=== PATIENT | male | born 1950 | race Caucasian/White ===

== ENCOUNTER 2024-01-06 06:22 | Day surgery (SDC) | payer MEDICARE, SELFPAY ==
[2023-12-31 10:12] VITALS: BMI 26.9
[2024-01-06 06:43] VITALS: BP 109/53; PULSE 63; RESP 16; TEMP 36.2; O2SAT 95
[2024-01-06] MEDS: Tetracaine HCl/PF 0.5% Oph Sol 4 ML DROPS 1 DROP EYE-RIGHT (06:47)
[2024-01-06] MEDS: Cyclopentolate 1 % Ophth Sol 2 ML DRPBTL 1 DROP EYE-RIGHT ×3 (06:48→07:04)
[2024-01-06] MEDS: Tropicamide 1 % Ophth Sol 3 ML BTL 1 DROP EYE-RIGHT ×3 (06:50→07:06)
[2024-01-06] MEDS: Ketorolac Tromethamine 0.5% Op 10 ML DROPS 1 DROP EYE-RIGHT ×3 (06:52→07:08)
[2024-01-06] MEDS: Phenylephrine HCL 2.5% Oph SoL 2 ML BOTTLE 1 DROP EYE-RIGHT ×3 (06:54→07:10)
[2024-01-06 07:04] LABS: Glucose, Whole Blood 138 mg/dL (60-115)
--- NOTE | 2024-01-06 07:04 | HO.ANESPROP2 ---
HPI - Anesthesia Eval Consult details Narrative: 73 yo male patient for Right cataract extraction, IOL insertion PMFSH Active Problems Active Problems: Intermittent cough. No other symptoms. Past Medical History Medical History Hard of hearing Chronic pain Peripheral neuropathy Mixed hyperlipidemia PVCs (premature ventricular contractions) Heartburn AAA (abdominal aortic aneurysm) Type 2 diabetes mellitus Family History Family history of problems with anesthesia: No Surgical History Surgical History Hx of foot surgery History of total replacement of both shoulder joints Hx of colonoscopy Hx of tonsillectomy History of total left knee replacement History of back surgery History of Problems with Anesthesia: No Social History Social History Patient Tobacco Use Status: Former Tobacco user Tobacco use type: Cigarette Use of substances other than those prescribed or required for medical reasons: No Advance Directives on File: No Nutrition Risks: Surgical patient >75years Meds Allergies Allergy/AdvReac Type Severity Reaction Status Date / Time oxycodone [From OxyContin] Allergy Severe gastrointestinal Verified 12/31/23 09:58 blockage Active Medications: Current Medications Povidone Iodine (Povidone Iodine 5 % Ophth Soln 30 Ml Bottle) 1 appl EYE-RIGHT PREOP PRN PRN Reason: Pre-Op Surgical Implant Prophy Home Medications ?Medication ?Instructions ?Recorded ?Confirmed ?Last Taken ?Type acetaminophen 500 mg tablet 500 mg PO Q6H PRN Pain 12/31/23 12/31/23 Unknown History aspirin 81 mg tablet,delayed 81 mg PO DAILY 12/31/23 12/31/23 Unknown History release atorvastatin 40 mg tablet 40 mg PO DAILY 12/31/23 12/31/23 Unknown History cholecalciferol (vitamin D3) 25 25 mcg PO DAILY 12/31/23 12/31/23 Unknown History mcg (1,000 unit) capsule (Vitamin D3) cyanocobalamin (vitamin B-12) 50 50 mcg PO DAILY 12/31/23 12/31/23 Unknown History mcg tablet (Vitamin B-12) empagliflozin 10 mg tablet 10 mg PO DAILY 12/31/23 12/31/23 Unknown History (Jardiance) flecainide 50 mg tablet 50 mg PO BID 12/31/23 12/31/23 Unknown History gabapentin 300 mg capsule 300 mg PO BID 12/31/23 12/31/23 Unknown History metformin 1,000 mg tablet 1,000 mg PO BID 12/31/23 12/31/23 Unknown History metoprolol succinate 25 mg 25 mg PO DAILY 12/31/23 12/31/23 Unknown History tablet,extended release 24 hr multivitamin 1 tab PO QAM 12/31/23 12/31/23 Unknown History oxybutynin chloride 15 mg 15 mg PO DAILY 12/31/23 12/31/23 Unknown History tablet,extended release 24 hr Exam Height,Weight and Vital Signs: Height 5 ft 6.5 in Weight 76.657 kg Last Vital Signs Temp 97.1 F 01/06/24 06:43 Pulse 63 01/06/24 06:43 Resp 16 01/06/24 06:43 BP 109/53 L 01/06/24 06:43 Pulse Ox 95 01/06/24 06:43 O2 Del Method Room Air 01/06/24 06:43 Airway Mallampati Class: II TM Dist: >3cm Neck ROM: Full Loose/Missing/Broken Teeth: Yes (Some extractions. Denies broken or loose teeth) Heart: RRR Lungs: CTAB Assessment and Plan Assessment Anesthesia Assessment: Anesthesia Plan Discussed and Chart Reviewed Final Anesthetic Review Family History of Problems with Anesthesia: No History of Problems with Anesthesia: No NPO: Yes ASA Class: III Final Preanesthetic Review: No Changes in Pt Med Stat, Meds/Allgs Chart Reviewed, Consent Obtained/Reviewed and Anes Risks/Benef Reviewed Patient Risk: Intermediate Procedure Risk: Low Assessment/Block/Sedation in SS: Assess/Block/Sedation-SS Anesthetic Plan Anesthetic Plan: MAC: (Aware to make surgeon aware if need to cough) Disposition: Standard PACU
[2024-01-06] MEDS: Lactated Ringers 1,000 ML 50 ML IVCONT (07:11)
--- NOTE | 2024-01-06 07:57 | MHC.SHP ---
Pre-Procedural Eval Section A - 24 Hr Update-Section A only Date of Service: 01/06/24 The patient is an INPATIENT: No Changes since office visit: No Cold of Flu in the past 2 weeks, No New Medical Problems, No Changes in Medication and No Patient answered all questions The patient has been examined within 24 hours of the surgical procedure. The History & Physical has been completed within 30 days and I have reviewed it.: Yes Section B - Complete if H&P > 30 days Chief Complaint: Age-related nuclear cataract, right eye Allergies: Allergies Allergy/AdvReac Type Severity Reaction Status Date / Time oxycodone [From OxyContin] Allergy Severe gastrointestinal Verified 01/06/24 07:29 blockage Plan Diagnosis/Plan: Unchanged I have reviewed the history and physical and performed a pertinent physical examination on my patient. No changes have occurred unless specified. Time Spent With Patient Time: Total time managing care of this patient today ____ minutes.
--- NOTE | 2024-01-06 07:58 | P.PCNO_ITS ---
Ophthalmology Procedure Procedure Date of Service: 01/06/24 Ophthalmology Viscoelastic: Healon Duet Dual Pack Pro Ophthalmology Lenses: IOL Acrysof MP - MA60AC (17.5) Procedure Notes: PREOPERATIVE DIAGNOSIS: Decreased visual acuity right eye secondary to cataract POSTOPERATIVE DIAGNOSIS: Same PROCEDURE: Right cataract extraction with intraocular lens insertion SURGEON: Andres Zapata M.D. ANESTHESIA: Topical/MAC ESTIMATED BLOOD LOSS: None COMPLICATIONS: None After obtaining informed consent, the patient was brought to the operating room suite and placed in the supine position. After adequate sedation per anesthesia, topical drops of Tetracaine were given to the right eye. The eye was then prepped and draped in the usual sterile fashion. The operating room microscope was then positioned over the operative eye and a lid speculum placed. A paracentesis was created. Viscoelastic was then instilled into the anterior chamber. A three plane incision was then created temporally, utilizing a 2.85 mm keratome. Capsulotomy forceps were then utilized to create a circular tear capsulotomy. Hydrodissection and hydrodelineation were carried out until adequate mobilization of the nucleus occurred. Phacoemulsification was then utilized to remove the dense central nu cleus followed by removal of the cortical material utilizing the automated aspiration irrigation unit. Viscoelastic was instilled into the posterior capsular bag followed by placement of a posterior chamber intraocular lens without difficulty. The residual Viscoelastic was then removed utilizing the automated IA machine. The wound was checked and found to be watertight. The patient tolerated the procedure well and the lid speculum was removed. Intracameral injection of Vigamox 0.1 mL followed by a subtenon injection of Kenalog-40 0.2 mL were administered. The patient will be seen in the a.m.
[2024-01-06 08:25] VITALS: BP 101/51; PULSE 58; RESP 16; TEMP 36.6; O2SAT 96
== END 2024-01-06 08:36 | disposition home or self-care (01) ==
PROVIDERS: PCP Family Medicine; Visit Provider Ophthalmology
PROC: (CPT 66985; principal; 2024-01-06 08:00)
DX: H25.11 Age-related nuclear cataract, right eye (principal); H54.7 Unspecified visual loss; H52.13 Myopia, bilateral; H02.102 Unspecified ectropion of right lower eyelid; H02.105 Unspecified ectropion of left lower eyelid; H02.403 Unspecified ptosis of bilateral eyelids; H35.09 Other intraretinal microvascular abnormalities; E11.9 Type 2 diabetes mellitus without complications; E78.00 Pure hypercholesterolemia, unspecified; I71.40 Abdominal aortic aneurysm, without rupture, unspecified; Z79.899 Other long term (current) drug therapy; Z79.84 Long term (current) use of oral hypoglycemic drugs; Z79.82 Long term (current) use of aspirin; Z87.891 Personal history of nicotine dependence
CPT/HCPCS: 66984; 82947; J2250; J3010; J3301; V2630

== ENCOUNTER 2024-01-20 06:39 | Day surgery (SDC) | payer MEDICARE, SELFPAY ==
[2023-12-31 10:19] VITALS: BMI 26.9
[2024-01-20 06:41] VITALS: BP 123/57; PULSE 47; RESP 18; TEMP 36.3; O2SAT 98
[2024-01-20] MEDS: Tetracaine HCl/PF 0.5% Oph Sol 4 ML DROPS 1 DROP EYE-LEFT (06:59)
[2024-01-20 07:00] LABS: Glucose, Whole Blood 136 mg/dL (60-115)
[2024-01-20] MEDS: Cyclopentolate 1 % Ophth Sol 2 ML DRPBTL 1 DROP EYE-LEFT ×3 (07:00→07:01)
[2024-01-20] MEDS: Ketorolac Tromethamine 0.5% Op 10 ML DROPS 1 DROP EYE-LEFT ×3 (07:00→07:01)
[2024-01-20] MEDS: Phenylephrine HCL 2.5% Oph SoL 2 ML BOTTLE 1 DROP EYE-LEFT ×3 (07:00→07:02)
[2024-01-20] MEDS: Tropicamide 1 % Ophth Sol 3 ML BTL 1 DROP EYE-LEFT ×3 (07:00→07:02)
[2024-01-20] MEDS: Lactated Ringers 500 ML 20 ML IVCONT (07:09)
--- NOTE | 2024-01-20 07:29 | MHC.SHP ---
Pre-Procedural Eval Section A - 24 Hr Update-Section A only Date of Service: 01/20/24 The patient is an INPATIENT: No Changes since office visit: No Cold of Flu in the past 2 weeks, No New Medical Problems, No Changes in Medication and No Patient answered all questions The patient has been examined within 24 hours of the surgical procedure. The History & Physical has been completed within 30 days and I have reviewed it.: Yes Section B - Complete if H&P > 30 days Chief Complaint: Age-related nuclear cataract, left eye Allergies: Allergies Allergy/AdvReac Type Severity Reaction Status Date / Time oxycodone [From OxyContin] Allergy Severe gastrointestinal Verified 01/06/24 07:29 blockage Plan Diagnosis/Plan: Unchanged I have reviewed the history and physical and performed a pertinent physical examination on my patient. No changes have occurred unless specified. Time Spent With Patient Time: Total time managing care of this patient today ____ minutes.
--- NOTE | 2024-01-20 07:35 | P.CONAN_ITS ---
HPI - Anesthesia Eval Consult details Narrative: 73 yo M presenting for cataract extraction IOL insertion - left eye. Had right eye done previously. [facility] Past Medical History Medical History Hard of hearing Chronic pain Peripheral neuropathy Mixed hyperlipidemia PVCs (premature ventricular contractions) Heartburn AAA (abdominal aortic aneurysm) Type 2 diabetes mellitus Family History Family history of problems with anesthesia: No Surgical History Surgical History Hx of foot surgery History of total replacement of both shoulder joints Hx of colonoscopy Hx of tonsillectomy History of total left knee replacement History of back surgery History of Problems with Anesthesia: No Social History Social History Patient Tobacco Use Status: Former Tobacco user Tobacco use type: Cigarette Use of substances other than those prescribed or required for medical reasons: No Advance Directives Information Provided: Yes (as above noted) Advance Directives on File: No Nutrition Risks: Surgical patient >75years Meds Allergies Allergy/AdvReac Type Severity Reaction Status Date / Time oxycodone [From OxyContin] Allergy Severe gastrointestinal Verified 01/06/24 07:29 blockage Active Medications: Current Medications Lactated Ringer's (Lr) 500 mls @ 20 mls/hr IVCONT .Q24H GAUTAM Last Admin: 01/20/24 07:09 Dose: 20 mls/hr Povidone Iodine (Povidone Iodine 5 % Ophth Soln 30 Ml Bottle) 1 appl EYE-LEFT PREOP PRN PRN Reason: Pre-Op Surgical Implant Prophy Home Medications ?Medication ?Instructions ?Recorded ?Confirmed ?Last Taken ?Type acetaminophen 500 mg tablet 500 mg PO Q6H PRN Pain 12/31/23 12/31/23 Unknown History aspirin 81 mg tablet,delayed 81 mg PO DAILY 12/31/23 12/31/23 Unknown History release atorvastatin 40 mg tablet 40 mg PO DAILY 12/31/23 12/31/23 Unknown History cholecalciferol (vitamin D3) 25 25 mcg PO DAILY 12/31/23 12/31/23 Unknown History mcg (1,000 unit) capsule (Vitamin D3) cyanocobalamin (vitamin B-12) 50 50 mcg PO DAILY 12/31/23 12/31/23 Unknown History mcg tablet (Vitamin B-12) empagliflozin 10 mg tablet 10 mg PO DAILY 12/31/23 01/06/24 01/16/24 History (Jardiance) flecainide 50 mg tablet 50 mg PO BID 12/31/23 01/06/24 01/20/24 History gabapentin 300 mg capsule 300 mg PO BID 12/31/23 01/06/24 01/20/24 History metformin 1,000 mg tablet 1,000 mg PO BID 12/31/23 12/31/23 Unknown History metoprolol succinate 25 mg 25 mg PO DAILY 12/31/23 01/06/24 01/20/24 History tablet,extended release 24 hr multivitamin 1 tab PO QAM 12/31/23 12/31/23 Unknown History oxybutynin chloride 15 mg 15 mg PO DAILY 12/31/23 12/31/23 Unknown History tablet,extended release 24 hr Exam Exam Date and Time: January 20, 202435 Height,Weight and Vital Signs: Height 5 ft 6.5 in Weight 76.657 kg Last Vital Signs Temp 97.3 F 01/20/24 06:41 Pulse 47 L 01/20/24 06:41 Resp 18 01/20/24 06:41 BP 123/57 L 01/20/24 06:41 Pulse Ox 98 01/20/24 06:41 O2 Del Method Room Air 01/20/24 06:41 Pertinent Lab Results Pertinent Lab Results: Laboratory Tests 01/20/24 06:57 POC Glucose 136 H Airway Mallampati Class: I TM Dist: >3cm Neck ROM: Full Loose/Missing/Broken Teeth: No (patient denies any loose or broken teeth) Heart: S1S2 Lungs: CTAB Assessment and Plan Assessment Anesthesia Assessment: Anesthesia Plan Discussed and Chart Reviewed Final Anesthetic Review Family History of Problems with Anesthesia: No History of Problems with Anesthesia: No NPO: Yes ASA Class: III Final Preanesthetic Review: No Changes in Pt Med Stat, Meds/Allgs Chart Reviewed, Consent Obtained/Reviewed and Anes Risks/Benef Reviewed Patient Risk: Intermediate Procedure Risk: Low Anesthetic Plan Anesthetic Plan: MAC: and Agree w/ Assess. and Plan Disposition: Standard PACU
--- NOTE | 2024-01-20 07:56 | HO.PNOPHT ---
Ophthalmology Procedure Procedure Date of Service: 01/20/24 Ophthalmology Viscoelastic: Healon Duet Dual Pack Pro Ophthalmology Lenses: IOL Acrysof MP - MA60AC (17.5) Procedure Notes: PREOPERATIVE DIAGNOSIS: Decreased visual acuity left eye secondary to cataract POSTOPERATIVE DIAGNOSIS: Same PROCEDURE: Left cataract extraction with intraocular lens insertion SURGEON: Andres Zapata M.D. ANESTHESIA: Topical/MAC ESTIMATED BLOOD LOSS: None COMPLICATIONS: None After obtaining informed consent, the patient was brought to the operation room suite and placed in the supine position. After adequate sedation per anesthesia, topical drops of Tetracaine were given to the left eye. The eye was then prepped and draped in the usual sterile fashion. The operating room microscope was then positioned over the operative eye and a lid speculum placed. A paracentesis was created. Viscoelastic was then instilled into the anterior chamber. A three plane incision was then created temporally, utilizing a 2.85 mm keratome. Capsulotomy forceps were then utilized to create a circular tear capsulotomy. Hydrodissection and hydrodelineation were carried out until adequate mobilization of the nucleus occurred. Phacoemulsification was then utilized to remove the dense central nucleus followed by removal of the cortical material utilizing the automated aspiration irrigation unit. Viscoat elastic was instilled into the posterior capsular bag followed by placement of a posterior chamber intraocular lens without difficulty. The residual Viscoat elastic was then removed utilizing the automated IA machine. The wound was check and found to be watertight. The patient tolerated the procedure well and the lid speculum was removed. Intracameral injection of Vigamox 0.1 mL followed by a subtenon injection of Kenalog-40 0.2 mL were administered. The patient will be seen in the a.m.
[2024-01-20 08:21] VITALS: BP 112/54; PULSE 43; RESP 16; TEMP 36.1; O2SAT 99
== END 2024-01-20 08:34 | disposition home or self-care (01) ==
PROVIDERS: PCP Family Medicine; Visit Provider Ophthalmology
PROC: (CPT 66985; principal; 2024-01-20 08:20)
DX: H25.12 Age-related nuclear cataract, left eye (principal); H54.7 Unspecified visual loss; H35.09 Other intraretinal microvascular abnormalities; H52.13 Myopia, bilateral; H02.102 Unspecified ectropion of right lower eyelid; E78.00 Pure hypercholesterolemia, unspecified; I71.40 Abdominal aortic aneurysm, without rupture, unspecified; E11.9 Type 2 diabetes mellitus without complications; Z79.84 Long term (current) use of oral hypoglycemic drugs; Z79.899 Other long term (current) drug therapy; Z88.5 Allergy status to narcotic agent; Z87.891 Personal history of nicotine dependence
CPT/HCPCS: 66984; 82947; J2250; J3301; V2630